=== PATIENT | female | born 1960 | race Hispanic/Latino ===

== ENCOUNTER 2017-11-01 08:41 | Emergency (ER) | payer BC, OTHER ==
[2017-11-01 09:02] VITALS: TEMP 98.2
--- NOTE | 2017-11-01 09:19 | ED.PDOC ---
History of Present Illness - General Chief Complaint: Lower Extremity Injury Stated Complaint: tripped and twisted both ankles Time Seen by Provider: 11/01/17 09:18 Source: patient, family Exam Limitations: no limitations - History of Present Illness Initial Comments: Linh Meredith 57 y/o female stated that while she was going down stairst[place] of friends house last night her left foot got stuck on the stair slightly lost her balance and twisting her right foot able to hold on to the railings to prevent her fall.Since last night with throbbing pain on both ankles. Pain on weight bearing after incident. Occurred: yesterday Pain - Lower Extremity: moderate: Left Ankle, Right Ankle Method of Injury: twisted, other - see hpi Improving Factors: rest Worsening Factors: movement Allergies/Adverse Reactions: Allergies Penicillins Allergy (Intermediate, Verified 11/01/17 09:03) Home Medications: Ambulatory Orders Acetamin W/Cod #3 Tab [Tylenol w/CODEINE #3] 1 ea PO Q6HRS PRN #30 tab 11/01/17 Review of Systems - Review of Systems Constitutional: States: no symptoms reported EENTM: States: no symptoms reported Respiratory: States: no symptoms reported Cardiology: States: no symptoms reported Gastrointestinal/Abdominal: States: no symptoms reported Genitourinary: States: no symptoms reported Musculoskeletal: States: see HPI All other Systems: Reviewed and Negative Past Medical History (General) - Patient Medical History Hx Hypertension: Yes Hx Diabetes: Yes Surgical History: no surgical history - Vaccination History Hx Tetanus, Diphtheria Vaccination: Yes Hx Influenza Vaccination: Yes - Social History Hx Tobacco Use: No Feels Threatened In Home Enviroment: No Feels Threatened In a Relationship: No Hx Physical Abuse: No Hx Emotional Abuse: No Hx Suspected Abuse: No - Activities of Daily Living Patient Lives Alone: No - home with family - Female History Patient is a Female of Child Bearing Age (10 -59 yrs old): No Patient : No Family Medical History - Family History Father Living Status: Hx Family Diabetes: Yes Physical Exam - Physical Exam General Appearance: Alert, Comfortable, No apparent distress Eyes, Ears, Nose, Throat: normal ENT inspection Neck: non-tender, full range of motion, supple Cardiovascular/Respiratory: regular rate, rhythm, normal peripheral pulses, no JVD, normal breath sounds Gastrointestinal/Abdominal: non-tender, no organomegaly Back: no CVA tenderness, no vertebral tenderness Thigh/Hip: no evidence of injury Leg: normal inspection, non-tender, no evidence of injury Knee: non-tender, no evidence of injury, normal ROM Ankle: ecchymosis - bilateral ankle right >left Foot: bone tenderness - both ankle, limited ROM - both ankles pain, soft tissue tenderness - both ankles r>l Neuro/Tendon: normal sensation, normal motor functions, normal tendon functions , responds to pain Mental Status: alert, oriented x 3 Skin: normal color, warm/dry Progress - Progress Progress: 11/01/17 09:34 Vital Signs - 8 hr 11/01/17 08:58 Temperature 98.2 F Pulse Rate [ 74 Left Brachial] Respiratory 16 Rate Blood Pressure 173/85 [Left Arm] O2 Sat by Pulse 97 Oximetry - EKG/XRAY/CT XRAY: ankle - fracture right tibia Departure - Departure Clinical Impression: Fracture of tibia, distal, closed Qualifiers: Encounter type: initial encounter Fracture morphology: unspecified fracture morphology Laterality: right Qualified Code(s): S82.301A - Unspecified fracture of lower end of right tibia, initial encounter for closed fracture Fractured fibula Qualifiers: Encounter type: initial encounter Fibula location: lateral malleolus Fracture type: closed Fracture alignment: nondisplaced Laterality: left Qualified Code(s) : S82.65XA - Nondisplaced fracture of lateral malleolus of left fibula, initial encounter for closed fracture Time of Disposition: 10:37 Disposition: Discharge to Home or Self Care Condition: Good Departure Forms: ED Discharge - Pt. Copy, Patient Portal Self Enrollment Instructions: DI for Ankle Fracture Referrals: Eric Wing MD [Primary Care Provider] - 1-2 Weeks Prescriptions: Acetamin W/Cod #3 Tab [Tylenol w/CODEINE #3] 1 ea PO Q6HRS PRN #30 tab PRN Reason: Pain Home Medications: Ambulatory Orders Acetamin W/Cod #3 Tab [Tylenol w/CODEINE #3] 1 ea PO Q6HRS PRN #30 tab 11/01/17 Additional Instructions: Follow up with Dr. Wing for orthopedist -referral
[2017-11-01] MEDS ORDERED: HYDROcodone 7.5MG/APAP 325MG 1 EA TAB PO ONE (10:08)
--- NOTE | 2017-11-01 10:13 | RAD ---
Left ankle 3 views INDICATION: Ankle pain NOS IMPRESSION: Large plantar and Achilles enthesophytes. Bones are osteopenic or osteoporotic. Marked soft tissue swelling lateral greater than medial. Os peroneum. Faint hairline lucency in the lateral malleolus question nondisplaced fracture correlate with trauma and consider radiographic follow-up. Mortise and syndesmosis are congruent. No focal osteochondral lesion. Small ankle effusion. Electronically signed by: Branden Cheng MD 11/01/2017 10:12 AM [facility]
--- NOTE | 2017-11-01 10:17 | RAD ---
Right ankle 3 views INDICATION: Ankle pain fracture acute IMPRESSION: Diffuse soft tissue swelling medial greater than lateral. Oblique fracture medial malleolus without gross displacement. Syndesmosis and mortise are congruent. Prominent ankle effusion/hemarthrosis. Prominent plantar and Achilles enthesophytes. Bones are osteopenic or osteoporotic. Probable fracture extension into the distal tibial metaphysis and distal diaphysis nondisplaced best visualized on the mortise view. Electronically signed by: Branden Cheng MD 11/01/2017 10:16 AM [facility]
[2017-11-01 10:54] VITALS: BP 166/78; O2SAT 100
== END 2017-11-01 09:50 | disposition home or self-care (01) ==
LOC: ER 08:41
DX: S82.301A Unspecified fracture of lower end of right tibia, initial encounter for closed fracture (principal); S82.65XA Nondisplaced fracture of lateral malleolus of left fibula, initial encounter for closed fracture; E11.9 Type 2 diabetes mellitus without complications; I10 Essential (primary) hypertension; Z88.0 Allergy status to penicillin; X50.1XXA Overexertion from prolonged static or awkward postures, initial encounter; Y92.009 Unspecified place in unspecified non-institutional (private) residence as the place of occurrence of the external cause

== ENCOUNTER → 2017-11-08 | Outpatient (CLI) | payer BC ==
--- NOTE | 2017-11-08 09:55 | RAD ---
EXAM DESCRIPTION: Ankle,Right 3 Views (accession [id number]), Ankle,Left 3 Views (accession [id number]) CLINICAL HISTORY: 57 years, Female, ANKLE PAIN COMPARISON: None. TECHNIQUE: Three views of both ankles FINDINGS: On the left marked soft tissue swelling laterally with a transverse fracture through the fibular tip approximately six or 7 mm proximal to the tip of the lateral malleolus is noted. Ankle mortise is well-maintained. The medial malleolus is intact and no posterior malleolar abnormality noted. Plantar calcaneal spurring is noted. On the right, a nondisplaced fracture at the base of the medial malleolus with slight widening to approximately 2 mm is present. The fibula and lateral malleolus is intact and the ankle mortise is well-maintained. On the lateral view only a very subtle but I believe definite fracture line continues through the posterior aspect of the distal tibia and involves at least a portion of the posterior malleolus. I am uncertain whether this represents a continuation of the medial malleolar fracture or a separate posterior malleolar fracture. IMPRESSION: 1. Transverse fracture of the distal left fibula proximally six or 7 mm proximal to the tip without disruption of the ankle mortise. 2. Right medial malleolar fracture with slight distraction and subtle abnormality involving the distal tibia posteriorly on the lateral view only consistent with a extension of the fracture line or secondary fracture of the posterior malleolus. Electronically signed by: Contreras Mcghee MD 11/08/2017 9:54 AM [employer]
--- NOTE | 2017-11-08 09:55 | RAD ---
EXAM DESCRIPTION: Ankle,Right 3 Views (accession [id number]), Ankle,Left 3 Views (accession [id number]) CLINICAL HISTORY: 57 years, Female, ANKLE PAIN COMPARISON: None. TECHNIQUE: Three views of both ankles FINDINGS: On the left marked soft tissue swelling laterally with a transverse fracture through the fibular tip approximately six or 7 mm proximal to the tip of the lateral malleolus is noted. Ankle mortise is well-maintained. The medial malleolus is intact and no posterior malleolar abnormality noted. Plantar calcaneal spurring is noted. On the right, a nondisplaced fracture at the base of the medial malleolus with slight widening to approximately 2 mm is present. The fibula and lateral malleolus is intact and the ankle mortise is well-maintained. On the lateral view only a very subtle but I believe definite fracture line continues through the posterior aspect of the distal tibia and involves at least a portion of the posterior malleolus. I am uncertain whether this represents a continuation of the medial malleolar fracture or a separate posterior malleolar fracture. IMPRESSION: 1. Transverse fracture of the distal left fibula proximally six or 7 mm proximal to the tip without disruption of the ankle mortise. 2. Right medial malleolar fracture with slight distraction and subtle abnormality involving the distal tibia posteriorly on the lateral view only consistent with a extension of the fracture line or secondary fracture of the posterior malleolus. Electronically signed by: Contreras Mcghee MD 11/08/2017 9:54 AM [employer]
== END | disposition home or self-care (01) ==
LOC: RAD 08:58
PROVIDERS: ATTEND Orthopaedic Surgery
DX: M25.571 Pain in right ankle and joints of right foot (principal)

== ENCOUNTER → 2017-11-17 | Outpatient (CLI) | payer BC ==
--- NOTE | 2017-11-18 11:08 | RAD ---
EXAM DESCRIPTION: Ankle,Right 3 Views CLINICAL HISTORY: 57 years, Female, CLOSED FX OF ANKLE COMPARISON: November 08, 2017 TECHNIQUE: AP/lateral/oblique of the Right ankle FINDINGS: Three-view right ankle with patient in a cast shows good alignment of the medial malleolus. Ankle mortise normal. No callus observed although the cast material obscures fine detail. IMPRESSION: 1. Well aligned medial malleolus fracture Electronically signed by: Jamil Maldonado MD 11/18/2017 11:08 AM [facility]
--- NOTE | 2017-11-18 11:19 | RAD ---
EXAM DESCRIPTION: Ankle,Left 3 Views CLINICAL HISTORY: 57 years, Female, SPRAIN OF ANKLE COMPARISON: November 01, 2017 TECHNIQUE: AP/lateral/oblique of the left ankle FINDINGS: The lateral malleolus nondisplaced fracture appears healed. Soft tissue swelling has resolved. Ankle mortise joint shows normal relationship. Heel spurs again noted. IMPRESSION: 1. Heel spurs. Healed lateral malleolus fracture. Electronically signed by: Jamil Maldonado MD 11/18/2017 11:18 AM [facility]
== END | disposition home or self-care (01) ==
LOC: RAD 09:03
PROVIDERS: ATTEND Orthopaedic Surgery
DX: S82.91XD Unspecified fracture of right lower leg, subsequent encounter for closed fracture with routine healing (principal); S93.402D Sprain of unspecified ligament of left ankle, subsequent encounter

== ENCOUNTER → 2017-12-05 | Outpatient (CLI) | payer BC ==
--- NOTE | 2017-12-05 13:29 | RAD ---
EXAM DESCRIPTION: Ankle,Right 3 Views CLINICAL HISTORY: 57 years, Female, CLOSED FX OF ANKLE COMPARISON: November 17, 2017, November 08, 2017 TECHNIQUE: AP/lateral/oblique of the ankle FINDINGS: An encircling fiberglass cast is present surrounding the right ankle. Well aligned the medial malleolar fracture is not visible through the encircling fiberglass cast. Ankle mortise is well-maintained. Calcaneal spurring is noted. IMPRESSION: 1. Normal alignment of the right ankle mortise with previous medial malleolar fracture not visible through the encircling fiberglass cast. Electronically signed by: Contreras Mcghee MD 12/05/2017 1:27 PM [facility]
--- NOTE | 2017-12-05 13:31 | RAD ---
EXAM DESCRIPTION: Ankle,Left 3 Views CLINICAL HISTORY: 57 years, Female, SPRAIN OF ANKLE COMPARISON: November 17, 2017, November 01, 2017 TECHNIQUE: AP/lateral/oblique of the ankle FINDINGS: Three views of the left ankle out of cast demonstrates a nondisplaced lateral malleolar fracture involving the tip of the fibula. This fracture line is more clearly visible on today's study in comparison to most recent prior examination November 17 and remains nondisplaced but incompletely healed at the tip of the fibula. No widening of the ankle mortise or significant distraction of the distal fibular fragment is evident. IMPRESSION: 1. Anatomically aligned distal fibular fracture with incomplete healing and no abnormal widening of the ankle mortise. 2. Persistent calcaneal spurs and interval resolution of soft tissue swelling. Electronically signed by: Contreras Mcghee MD 12/05/2017 1:30 PM [facility]
== END ==
LOC: RAD 08:43
PROVIDERS: ATTEND Orthopaedic Surgery
DX: S82.91XD Unspecified fracture of right lower leg, subsequent encounter for closed fracture with routine healing (principal); S93.402D Sprain of unspecified ligament of left ankle, subsequent encounter; M77.32 Calcaneal spur, left foot

== ENCOUNTER → 2017-12-16 | Outpatient (CLI) | payer BC ==
--- NOTE | 2017-12-19 08:23 | RAD ---
EXAM DESCRIPTION: Ankle,Right 3 Views CLINICAL HISTORY: CLOSED FX COMPARISON: December 05, 2017 IMPRESSION: 3 views of the right ankle show interval removal of the fiberglass cast. Nondisplaced transverse intra-articular fracture of the right medial malleolus is noted with indistinctness of the fracture margins. There is mild bridging bony union, but there remains some lucency along the fracture margin consistent with incomplete bony union at this time. The osseous structures are diffusely osteopenic. Ankle mortise is maintained. Large plantar and moderate Achilles enthesophytes of the calcaneus are seen. Electronically signed by: Yosef Juarez MD 12/19/2017 8:22 AM [facility]
--- NOTE | 2017-12-19 08:28 | RAD ---
EXAM DESCRIPTION: Ankle,Left 3 Views CLINICAL HISTORY: SPRAIN OF ANKLE COMPARISON: December 05, 2017 IMPRESSION: 3 views of the left ankle demonstrate nondisplaced mostly healed fracture of the distal fibula. There continues to be less prominence of the fracture line lucency compared to previous exam consistent with interval healing. Small persistent lucency and incomplete union of the most lateral distal aspect of the fracture is noted. Ankle mortise remains maintained. Large plantar and moderate Achilles enthesophytes of the calcaneus are seen. Electronically signed by: Yosef Juarez MD 12/19/2017 8:26 AM [facility]
== END ==
LOC: RAD 08:22
PROVIDERS: ATTEND Orthopaedic Surgery
DX: S82.91XD Unspecified fracture of right lower leg, subsequent encounter for closed fracture with routine healing (principal); S93.402D Sprain of unspecified ligament of left ankle, subsequent encounter; M77.31 Calcaneal spur, right foot; M77.32 Calcaneal spur, left foot

== ENCOUNTER → 2018-01-13 | Outpatient (CLI) | payer BC ==
--- NOTE | 2018-01-13 17:48 | RAD ---
EXAM DESCRIPTION: Ankle,Right 3 Views CLINICAL HISTORY: 57 years, Female, FRACTURE OF RIGHT COMPARISON: December 16, 2017 TECHNIQUE: AP/lateral/oblique of the right ankle FINDINGS: Intact medial and lateral malleolus. There is mild soft tissue prominence which could be mild swelling. Lucency in the medial malleolus on the oblique view is consistent with a healing fracture. This appears similar to previous study. On the AP view, fracture line is slightly less distinct than on previous study in December 2017. Intact dome of the talus. Lateral view shows no evidence of fracture of the body of the talus or calcaneus. Prominent dorsal and plantar calcaneal spurring is seen. Soft tissue density suggests the presence of an ankle joint effusion. IMPRESSION: Healing fracture of the medial malleolus. Electronically signed by: Ángel Marshall MD 01/13/2018 5:48 PM [facility]
--- NOTE | 2018-01-13 17:51 | RAD ---
EXAM DESCRIPTION: Ankle,Left 3 Views CLINICAL HISTORY: 57 years, Female, ANKLE SPRAIN COMPARISON: Comparison is made to previous study from December 16, 2017 TECHNIQUE: AP/lateral/oblique of the Right or left ankle FINDINGS: Intact medial malleolus. A fracture of the tip of the lateral malleolus is slightly less distinct than on the previous study consistent with continued healing. There is minimal soft tissue swelling laterally. No proximal metatarsal fracture Intact dome of the talus. Lateral view shows no evidence of fracture of the body of the talus or calcaneus. Large plantar and dorsal calcaneal spurring is seen. No ankle joint narrowing, spurring or effusion. IMPRESSION: Healing fracture of the lateral malleolus. Electronically signed by: Ángel Marshall MD 01/13/2018 5:50 PM [facility]
== END ==
LOC: RAD 08:30
PROVIDERS: ATTEND Orthopaedic Surgery
DX: S82.91XD Unspecified fracture of right lower leg, subsequent encounter for closed fracture with routine healing (principal); S93.402D Sprain of unspecified ligament of left ankle, subsequent encounter

== ENCOUNTER → 2018-04-19 | Outpatient (CLI) | payer BC ==
--- NOTE | 2018-04-21 15:51 | MAM ---
EXAM DESCRIPTION: 3D Screening BILATERAL : Digital Mammography. CLINICAL HISTORY: 58 years Female SCREENING . No complaints. No family history breast cancer. Postmenopausal. Childbirth. No HRT. COMPARISON: 2-D digital screening bilateral study 09/06/2011.. No prior reports available. TECHNIQUE: Bilateral CC and MLO projection full-field images, 3-D tomosynthesis digital mammographic technique. CAD not utilized. FINDINGS: The breast parenchymal density pattern is: Heterogeneously dense breast tissue, which may obscure small masses. No skin thickening or nipple retraction. Bilateral solitary microcalcifications. No focal, stellate mass or density, focal asymmetry , and no suspicious microcalcifications bilaterally. Stable mammograms compared to prior study, taking into account differences in mammographic technique IMPRESSION: BI-RADS CATEGORY: 2 - BENIGN FINDINGS. FOLLOW UP: Routine digital bilateral screening, one year interval from April 2018. Written communication explaining the IMPRESSION and follow-up, will be mailed to the patient and referring health care provider. According to the [employer], yearly mammograms are recommended starting at age 40 and continuing as long as a woman is in good health. Any breast change noted on a breast self-exam should be reported promptly to the patient's healthcare provider. Breast MRI is recommended for women with an approximately 20-25% or greater lifetime risk of breast cancer, including women with a strong family history of breast or ovarian cancer and women who have been treated for Hodgkin's disease. A negative mammographic report should not delay tissue diagnosis in patients with significant clinical history or physical findings. Extremely dense breast tissue limits the sensitivity of digital mammography. Electronically signed by: Richie Scott MD 04/21/2018 3:50 PM CDT
== END ==
LOC: MAMMO 16:30
PROVIDERS: ATTEND Obstetrics & Gynecology
DX: Z12.31 Encounter for screening mammogram for malignant neoplasm of breast (principal)

== ENCOUNTER → 2019-06-14 | Outpatient (CLI) | payer BC ==
--- NOTE | 2019-06-18 17:30 | MAM ---
EXAM DESCRIPTION: 3D Screening BILATERAL : Digital Mammography. CLINICAL HISTORY: 59 years Female SCREENING . No complaints. No personal or family history of breast cancer. Childbirth. Postmenopausal. No HRT. Lifetime risk of developing breast cancer (Tyrer-Cuzick model)(%): 3.6. COMPARISON: Bilateral screening digital breast tomosynthesis 04/19/2018.. TECHNIQUE: Bilateral CC and MLO projection full-field images, digital tomosynthesis mammographic technique. Bilateral digital 2-D full-field MLO images. CAD not available for tomosynthesis or 2-D images. FINDINGS: The breast parenchymal density pattern is: Heterogeneously dense breast tissue, which may obscure small masses. No skin thickening or nipple retraction. Left axillary lymph nodes. Few bilateral solitary microcalcifications. Bilateral vascular calcifications. No new focal, stellate mass or density, focal asymmetry , and no suspicious microcalcifications bilaterally. Stable mammograms compared to prior study. IMPRESSION: Benign exam. BIRAD CATEGORY: 2 BENIGN FINDINGS. RECOMMENDATIONS: FOLLOW UP: Routine digital bilateral mammographic screening, one year interval from June 2019. Written communication explaining the IMPRESSION and follow-up, will be mailed to the patient and referring health care provider. According to the [employer], yearly mammograms are recommended starting at age 40 and continuing as long as a woman is in good health. Any breast change noted on a breast self-exam should be reported promptly to the patient's healthcare provider. Breast MRI is recommended for women with an approximately 20-25% or greater lifetime risk of breast cancer, including women with a strong family history of breast or ovarian cancer and women who have been treated for Hodgkin's disease. A negative mammographic report should not delay tissue diagnosis in patients with significant clinical history or physical findings. Extremely dense breast tissue limits the sensitivity of digital mammography. Electronically signed by: Richie Scott MD 06/18/2019 5:28 PM CDT
== END ==
LOC: MAMMO 14:59
PROVIDERS: ATTEND Obstetrics & Gynecology
DX: Z12.31 Encounter for screening mammogram for malignant neoplasm of breast (principal)

== ENCOUNTER → 2020-03-22 | Outpatient (CLI) | payer BC | LOC: LAB.O 08:26 | PROVIDERS: ATTEND Obstetrics & Gynecology | DX: D64.9 Anemia, unspecified (principal); K92.0 Hematemesis; K92.1 Melena ==

== ENCOUNTER 2020-08-08 13:58 | Emergency (ER) | payer BC ==
--- NOTE | 2020-08-08 14:46 | ED.PDOC ---
History of Present Illness - General Chief Complaint: General Stated Complaint: cough, congestion, body aches Time Seen by Provider: 08/08/20 14:41 Additional Information: PATIENT C/O COUGH, GENERALIZED BODY ACHES, POST NASAL DRIP, NO KNOWN EXPOSURE TO COVID-19. PT AND DAUGHTER CONCERNED THAT SHE MIGHT HAVE COVID-19 HOWEVER, NO KNOWN FEVER, NO SOB. - History of Present Illness Initial Comments: 3 DAYS Possible Cause: no prior episodes Improving Factors: nothing Worsening Factors: nothing Associated Symptoms: denies symptoms Respiratory Risk Factors: pollen Allergies/Adverse Reactions: Allergies Penicillins Allergy (Intermediate, Verified 08/08/20 14:18) Home Medications: Ambulatory Orders Azithromycin [Zithromax] 500 mg PO DAILY #5 tab 08/08/20 Lisinopril 20 mg PO DAILY 08/08/20 Metformin HCl [Fortamet] 1,000 mg PO 08/08/20 Prednisone 20 mg PO DAILY #5 tab 08/08/20 Review of Systems - Review of Systems Constitutional: States: see HPI, malaise, weakness. Denies: chills, fever EENTM: States: nose congestion, throat pain Respiratory: States: cough Cardiology: States: no symptoms reported Gastrointestinal/Abdominal: States: no symptoms reported Genitourinary: States: no symptoms reported Musculoskeletal: States: no symptoms reported Skin: States: no symptoms reported Neurological: States: no symptoms reported Endocrine: States: no symptoms reported Past Medical History (General) - Patient Medical History Hx Seizures: No Hx Stroke: No Hx Dementia: No Hx Asthma: No Hx of COPD: No Hx Cardiac Disorders: No Hx Congestive Heart Failure: No Hx Pacemaker: No Hx Hypertension: Yes Hx Thyroid Disease: No Hx Diabetes: Yes Hx Gastroesophageal Reflux: No Hx Renal Disease: No Hx Cancer: No Hx Hepatitis C: No - Vaccination History Hx Tetanus, Diphtheria Vaccination: Yes Hx Influenza Vaccination: No Hx Pneumococcal Vaccination: Yes - Social History Hx Tobacco Use: No Hx Alcohol Use: No Hx Physical Abuse: No Hx Emotional Abuse: No Hx Suspected Abuse: No - Female History Patient : No Family Medical History - Family History Father Living Status: Hx Family Diabetes: Yes Physical Exam - Physical Exam General Appearance: Alert, Comfortable, Well Developed, Well Groomed, Well Hydrated, Well Nourished ENT Exam: normal ENT inspection, hearing grossly normal, TMs normal, pharynx normal Neck: non-tender, full range of motion, supple, normal inspection, trachea midline Respiratory: chest non-tender, lungs clear, normal breath sounds, no respiratory distress, no accessory muscle use Gastrointestinal/Abdominal: normal bowel sounds, non tender, soft, no organomegaly Neurologic: alert, normal mood/affect, oriented x 3 Skin Exam: normal color, warm/dry Lymphatic: no adenopathy Departure - Departure Clinical Impression: Sinusitis Qualifiers: Sinusitis location: maxillary Chronicity: acute Recurrence: non-recurrent Qu alified Code(s): J01.00 - Acute maxillary sinusitis, unspecified Disposition: Discharge to Home or Self Care Departure Forms: ED Discharge - Pt. Copy, Patient Portal Self Enrollment Referrals: Eric Wing MD [Primary Care Provider] - 1-2 Weeks Prescriptions: Prednisone 20 mg PO DAILY #5 tab Azithromycin [Zithromax] 500 mg PO DAILY #5 tab Home Medications: Ambulatory Orders Azithromycin [Zithromax] 500 mg PO DAILY #5 tab 08/08/20 Lisinopril 20 mg PO DAILY 08/08/20 Metformin HCl [Fortamet] 1,000 mg PO 08/08/20 Prednisone 20 mg PO DAILY #5 tab 08/08/20 Additional Instructions: RECOMMEND OTC AFRIN NS, 2 SPRAYS EACH NOSTRIL, REPEAT IN 5 MINUTES, DO THIS EVERY 12 HOURS FOR 3 DAYS TO PROMOTE SINUS DRAINAGE. MAY ALSO USE OTC MUCINEX D, EXCELLENT PRODUCT THAT DOES HELP WELL.
[2020-08-08 15:06] VITALS: BP 175/85; TEMP 98.1; O2SAT 98
== END 2020-08-08 14:50 | disposition home or self-care (01) ==
LOC: ER 13:58
DX: J01.00 Acute maxillary sinusitis, unspecified (principal); R05 Cough; I10 Essential (primary) hypertension; E11.9 Type 2 diabetes mellitus without complications; Z79.84 Long term (current) use of oral hypoglycemic drugs; Z88.0 Allergy status to penicillin; Z20.828 Contact with and (suspected) exposure to other viral communicable diseases

== ENCOUNTER 2020-11-19 14:13 | Emergency (ER) | payer BC ==
--- NOTE | 2020-11-19 15:12 | ED.PDOC ---
History of Present Illness - General Time Seen by Provider: 11/19/20 15:10 Source: patient, RN notes reviewed, Vital Signs reviewed Additional Information: Iraqi-speaking patient, presents to the ER because of wanting to get the antibody infusion for COVID-19 treatment., Patient was diagnosed with COVID-19 on Tuesday, patient denies any shortness of breath nausea vomiting fever chills abdominal pain diarrhea she is only complaining of mild upper back achiness, Denies smoking denies alcohol denies drugs patient is a diabetic - History of Present Illness Allergies/Adverse Reactions: Allergies Penicillins Allergy (Intermediate, Verified 11/19/20 15:47) Home Medications: Ambulatory Orders Azithromycin [Zithromax] 500 mg PO DAILY #5 tab 08/08/20 Lisinopril 20 mg PO DAILY 08/08/20 Metformin HCl [Fortamet] 1,000 mg PO 08/08/20 Prednisone 20 mg PO DAILY #5 tab 08/08/20 Review of Systems - Review of Systems Constitutional: States: no symptoms reported EENTM: States: no symptoms reported Respiratory: States: no symptoms reported Cardiology: States: no symptoms reported Gastrointestinal/Abdominal: States: no symptoms reported Genitourinary: States: no symptoms reported Musculoskeletal: States: no symptoms reported Skin: States: no symptoms reported Neurological: States: no symptoms reported Endocrine: States: no symptoms reported Hematologic/Lymphatic: States: no symptoms reported Past Medical History (General) - Patient Medical History Hx Seizures: No Hx Stroke: No Hx Dementia: No Hx Asthma: No Hx of COPD: No Hx Cardiac Disorders: No Hx Congestive Heart Failure: No Hx Pacemaker: No Hx Hypertension: Yes Hx Thyroid Disease: No Hx Diabetes: Yes Hx Gastroesophageal Reflux: No Hx Renal Disease: No Hx Cancer: No Hx Hepatitis C: No - Vaccination History Hx Tetanus, Diphtheria Vaccination: Yes Hx Influenza Vaccination: No Hx Pneumococcal Vaccination: Yes - Social History Hx Tobacco Use: No Hx Alcohol Use: No Hx Physical Abuse: No Hx Emotional Abuse: No Hx Suspected Abuse: No - Female History Patient : No Family Medical History - Family History Father Living Status: Hx Family Diabetes: Yes Physical Exam - Physical Exam General Appearance: Well Developed, Well Groomed, Well Hydrated, Well Nourished Eye Exam: bilateral normal Ears, Nose, Throat: hearing grossly normal, normal ENT inspection, normal pharynx Neck: non-tender, supple Respiratory: chest non-tender, lungs clear, normal breath sounds, no respiratory distress, no accessory muscle use Cardiovascular/Chest: normal peripheral pulses, regular rate, rhythm, no edema, no gallop, no JVD, no murmur Peripheral Pulses: radial,right: 2+, radial,left: 2+ Gastrointestinal/Abdominal: normal bowel sounds, non tender, soft, no organomegaly, no pulsatile mass Back Exam: normal inspection Extremity: normal range of motion, non-tender, normal inspection Progress - Progress Progress: This is a 60-year-old female, presents to the ER requesting the monoclonal antibody infusion bamlanivimab, given that she is she is 60 years old has elected hypertension diabetes, patient does not carry a stress has been observed in the ER for an hour after the infusion without any obvious signs of r espiratory depression, rash or anaphylactic shock, patient does not appear toxic does not any distress will be discharged home with instruction to return to the ER if there is any high fever chills nausea vomiting diarrhea unable to holding fluids down shortness of breath increased work of breathing speaking in sentences or any other concern 11/19/20 17:56 Departure - Departure Clinical Impression: COVID-19 Disposition: Discharge to Home or Self Care Condition: Fair Instructions: Coronavirus Disease 2019 (COVID-19) (DC) Diet: full liquid diet Referrals: Eric Wing MD [Primary Care Provider] - 1-2 Weeks Home Medications: Ambulatory Orders Azithromycin [Zithromax] 500 mg PO DAILY #5 tab 08/08/20 Lisinopril 20 mg PO DAILY 08/08/20 Metformin HCl [Fortamet] 1,000 mg PO 08/08/20 Prednisone 20 mg PO DAILY #5 tab 08/08/20 Additional Instructions: return to the ER if there is any high fever chills nausea vomiting diarrhea unable to holding fluids down shortness of breath increased work of breathing speaking in sentences or any other concern Print Language: Iraqi
[2020-11-19 15:47] VITALS: TEMP 97.8
[2020-11-19 18:19] VITALS: BP 188/100; O2SAT 97
== END 2020-11-19 18:19 | disposition home or self-care (01) ==
LOC: ER 14:13
DX: U07.1 COVID-19 (principal); I10 Essential (primary) hypertension; E11.9 Type 2 diabetes mellitus without complications; Z79.84 Long term (current) use of oral hypoglycemic drugs; Z79.899 Other long term (current) drug therapy; Z88.0 Allergy status to penicillin; Z23 Encounter for immunization